=== PATIENT | female | born 1990 | race Two or more races ===

== ENCOUNTER 2018-09-28 13:45 | Outpatient (CLI) | payer OTHER | END 2018-09-28 13:59 | disposition home or self-care (01) | LOC: RAD 501 13:45 | DX: M79.674 Pain in right toe(s) (principal) ==

== ENCOUNTER 2019-09-06 11:46 | Emergency (ER) | payer OTHER ==
[~2019-09-06] VITALS: Ht 162.6 cm; Wt 83.5 kg
== END 2019-09-06 13:19 | disposition home or self-care (01) ==
LOC: ER 11:46
DX: K08.89 Other specified disorders of teeth and supporting structures (principal)

== ENCOUNTER 2021-04-24 09:58 | Outpatient (CLI) | payer OTHER | END 2021-04-24 10:10 | disposition home or self-care (01) | LOC: RX STUDY 09:58 | PROVIDERS: ATTEND Obstetrics & Gynecology Reproductive Endocrinology | DX: N70.11 Chronic salpingitis (principal) ==